=== PATIENT | female | born 1950 | race American Indian/Alaskan Native ===

== ENCOUNTER 2020-06-17 05:57 | Emergency (ER) | payer SELFPAY ==
--- NOTE | 2020-06-17 06:06 | Emergency Department Report ---
ED CPR HPI - General Chief Complaint: Cardiac Arrest/CPR Stated Complaint: CARDIAC Time Seen by Provider: 06/17/20 05:57 Source: EMS - History of Present Illness Initial Comments: Patient is a 69-year-old female that presents emergency room with cardiac arrest. Patient's last known well time approximately 1 hour and a half ago. Patient brought in by EMS. Report received from EMS. EMS gave the patient epi, bicarb and intubated the patient with a Evaristo tube. Complaint: found unresponsive -: hour(s) Place: home Bystander CPR Performed: No AED Applied by Bystander/Back Roll Lathe Operator: No Shock Advised: No Initial Findings in the Field: unresponsive, no respirations, no pulse ROSC in the Field: Yes Associated Injuries: No Treatments Prior to Arrival: intubation, BMV, other airway device, chest compressions, epinephrine mgs #, sodium bicarbonate, amiodarone ED Review of Systems ROS: Stated complaint: CARDIAC Other details as noted in HPI Comment: Unobtainable due to pts medical conditions ED Past Medical Hx - Past Medical History Previous Medical History?: Yes Hx Hypertension: Yes Hx Diabetes: Yes - Surgical History Past Surgical History?: Yes Additional Surgical History: Breast augmentation - Family History Family history: no significant - Social History Smoking Status: Unknown if ever smoked Substance Use Type: None ED Physical Exam - General Limitations: Altered Mental Status, Physical Limitation General appearance: other - Head Head exam: Present: atraumatic, normocephalic - Eye Eye exam: Present: other (Pupils fixed and dilated) - ENT ENT exam: Present: other (Evaristo tube in place) - Neck Neck exam: Present: normal inspection - Respiratory Respiratory exam: Present: decreased breath sounds - Cardiovascular Cardiovascular Exam: Present: other (No pulse noted) - GI/Abdominal GI/Abdominal exam: Present: soft - Rectal Rectal exam: Present: deferred - Extremities Exam Extremities exam: Present: normal inspection - Skin Skin exam: Present: warm, dry, intact, normal color. Absent: rash ED Course - Reevaluation(s) Reevaluation #1: Report received from EMS prior to arrival. Code team assembled. 06/17/20 05:32 Reevaluation #2: Patient arrived via EMS. Patient is asystole. Patient was transferred to our [facility]. Patient was intubated by EMS with a Evaristo tube. Patient extubated and reintubated with a standard ET tube. 06/17/20 05:47 Reevaluation #3: Resuscitation efforts were terminated due to no signs of life. No falls. No cardiac motion. Asystole on the monitor. See code note. Code was ran in accordance with ACLS guidelines. Family support will be given once the family arrives. 06/17/20 05:55 Reevaluation #4: Family meeting done. Family support given and all questions answered. 06/17/20 06:42 - Intubation Time Out Performed: Yes Laryngoscope: fiberoptic video scope Size: 3 Assist Device Used: fiberoptic device ET Tube Size: 7.5 Tube Secured Depth (cm): 24 Tube Secured Location: teeth Tube Placement Confirmation: visualized tube passing t, equal breath sounds bilat, no breath sounds over epi, confirmation by capnometr Patient Tolerated Procedure: well, no complications Intubation Complications: none ED Medical Decision Making - Medical Decision Making Patient is a 69-year-old female that presents emergency room in a full cardiac arrest. Patient brought in by EMS. Patient was intubated by EMS with a Evaristo tube. Patient was immediately extubated and reintubated with an standard ET tube. See procedure note. Patient had several more rounds of CPR after arrival to the ER. Patient was shocked one time. Resuscitation efforts were terminated due to no signs of life. See code note. Code was ran in accordance with ACLS guidelines. - Differential Diagnosis Cardiac arrest, VA, PE, respiratory arrest Critical Care Time: Yes Critical care time in (mins) excluding proc time.: 35 Critical care attestation.: If time is entered above; I have spent that time in minutes in the direct care of this critically ill patient, excluding procedure time. Critical Care Time: 35 minutes ED Disposition Clinical Impression: Cardiac arrest Disposition: DC-20 Is pt being admited?: No Does the pt Need Aspirin: No Condition: Undetermined Referrals: PRIMARY CARE,MD [Primary Care Provider] - 3-5 Days Time of Disposition: 06:20
[2020-06-17] MEDS ORDERED: EPINEPHrine 1 MG/10 ML SYRINGE ONE (13:50)
[2020-06-17] MEDS ORDERED: CALCIUM CHLORIDE 1,000 MG/10 ML SYRINGE IV ONE (13:50)
[2020-06-17] MEDS ORDERED: SODIUM BICARB 8.4% 50 MEQ/50 ML SYRINGE IV ONE (13:50)
== END 2020-06-17 08:02 ==
LOC: ED 05:57
DX: I46.9 Cardiac arrest, cause unspecified (principal); I10 Essential (primary) hypertension; E11.9 Type 2 diabetes mellitus without complications; Z98.890 Other specified postprocedural states
CPT/HCPCS: 31500; 92950; 99285; J0171